=== PATIENT | female | born 1995 | race Caucasian/White ===

== ENCOUNTER 2018-11-05 21:04 | Inpatient (IN) ==
[2018-11-05] MEDS ORDERED: BUPIVACAINE HCL/0.9 % NACL/PF 250 ML EP PRN (22:00)
[2018-11-05] MEDS ORDERED: ONDANSETRON HCL/PF 2 MG/ML VIAL IV PRN (22:00)
[2018-11-05] MEDS ORDERED: NALOXONE HCL 1 MG/1 ML SYRG IV PRN (22:00)
--- NOTE | 2018-11-05 22:30 | ANES ---
Anesthesia Pre Procedure Eval Vitals/Labs: Last Vital Signs Temp 37.1 C 11/05/18 22:28 Pulse 88 11/05/18 22:28 Resp 18 11/05/18 22:28 BP 138/87 11/05/18 22:28 Pulse Ox 97 11/05/18 22:28 HOME MEDICATIONS vitamin,calcium,bymusxxr-cgpo-splep acid tablet 1 tab PO DAILY 03/27/18 [Last Taken 11/04/18] Allergies/Adverse Reactions: Allergies Allergy/AdvReac Type Severity Reaction Status Date / Time No Known Allergies Allergy Verified 11/05/18 21:56 - Planned Procedure Planned Procedure: labor epidural Medication List Reviewed:: Yes Allergies Verified: Yes Medical History (Updated 10/31/18 @ 09:57 by Emili Muñoz MD) Abdominal pain Onset Date: ~01/29/16 Knee pain Onset Date: ~06/2011 bilateral Vomiting Onset Date: ~04/14/09 ONE MONTH HX OF VOMITING. PROBABLE GERD. Surgical History (Updated 03/02/18 @ 13:42 by Kaylen Tomas CMA) History of nasal septoplasty Onset Date: ~02/2015 Dr. Mcdonald S/P tympanotomy with insertion of tube Family History (Updated 03/02/18 @ 13:43 by Kaylen Tomas CMA) Mother Knee pain B12 deficiency Father Hypertension - Cardiovascular Tolerate Activity: Good Heart Sounds: S1 & S2, Regular - Anesthesia Assessment and Plan ASA Class: PS, II Anesthesia Type Plan: Epidural
[2018-11-05] MEDS: BUPIVACAINE HCL/PF 30 ML VIAL EP SCH (22:47)
--- NOTE | 2018-11-05 22:49 | ANES ---
Anesthesia Procedure Note Procedure Note: ANESTHESIA PROCEDURE NOTE Date of Procedure: 11/05/2018. Time of procedure: 2229. Performed by: Baljit Cesar CRNA Survey Superintendent: None. Preprocedure diagnosis: Active labor. Post procedure diagnosis: Same. Procedure: Insertion of labor epidural. Indications: The patient is a 23-year-old female in active labor requesting labor epidural for pain management. Findings: See below. Details of the procedure: The patient was placed in a sitting position. DuraPrep as well as Betadine swabs X3 was applied to the patient's back. Patient was then draped in a sterile fashion. Lidocaine 1% was infiltrated to the skin and subcutaneous tissues at the level of the L3-4 interspace. The epidural space was identified using a 18-gauge Tuohy needle with [id number] technique. Epidural catheter was inserted to a depth of 13 centimeters at skin. Negative test dose was elicited using 3 mL of 1.5% preservative-free lidocaine plus epinephrine 1 200,000. The epidural catheter was then taped and secured in place. A loading dose of 8 mL of 0.25% preservative-free bupivacaine was administered to the epidural catheter after negative aspiration for blood and CSF. EBL: Minimal. Fluids: N/A. Specimen: N/A. Post procedure condition: The patient tolerated the procedure well. No complications were noted. Thank you for this consultation. Baljit Cesar CRNA
--- NOTE | 2018-11-05 22:49 | ANES ---
Post Anesthesia Assessment - Vital Signs Vitals: Last Vital Signs Temp 37.1 C 11/05/18 22:28 Pulse 88 11/05/18 22:28 Resp 18 11/05/18 22:28 BP 138/87 11/05/18 22:28 Pulse Ox 97 11/05/18 22:28 Airway Patency: Normal - Mental Status Level Of Consciousness: Awake - N/V Assessment Nausea/Vomiting Presence: None Dehydration:: No
[2018-11-05] MEDS ORDERED: RINGER'S SOLUTION,LACTATED 1,000 ML IV PRN (23:04)
[2018-11-05] MEDS ORDERED: LIDOCAINE HCL 50 ML VIAL PERI PRN (23:04)
[2018-11-05] MEDS ORDERED: OXYTOCIN/DEXTROSE 5%-WATER 30 UNITS/500 ML BAG IV ONE (23:04)
[2018-11-05] MEDS ORDERED: RINGER'S SOLUTION,LACTATED 1,000 ML IV ONE (23:04)
--- NOTE | 2018-11-06 00:02 | HP ---
Chief Complaint - Chief Complaint Date of Service: 11/05/18 Time of Service: 23:59 Chief Complaint: Labor History of Present Illness: The patient is a 23 year old at 40w 3d who presented in labor. She reports regular ctx. She denies vb or lof. Fetus is active. Medical History (Updated 10/31/18 @ 09:57 by Emili Muñoz MD) Abdominal pain Onset Date: ~01/29/16 Knee pain Onset Date: ~06/2011 bilateral Vomiting Onset Date: ~04/14/09 ONE MONTH HX OF VOMITING. PROBABLE GERD. Surgical History: Surgical History (Updated 03/02/18 @ 13:42 by Kaylen Tomas [facility]) History of nasal septoplasty Onset Date: ~02/2015 Dr. 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 Number current occupational exposures/hazards: No Highest education level completed: high school graduate Service: No Tobacco: Smoking Status: Never smoker Alcohol: alcohol intake: never Substance Use: substance use type: does not use Dietary Habits: caffeine: No Pets: pets and animals: dog(s) Review Of Systems (GEN) - Review of Systems Generalized/Overall Review: Present: No Symptoms Reported Misc: All systems neg except as marked Allergies/Adverse Reactions: Allergies Allergy/AdvReac Type Severity Reaction Status Date / Time No Known Allergies Allergy Verified 11/05/18 21:56 Home Medications: HOME MEDICATIONS vitamin,calcium,amgjefvc-ewze-fwvio acid tablet 1 tab PO DAILY 03/27/18 [Last Taken 11/04/18] Exam - Exam Vital Signs: Vital Signs - Last Taken Temp 36.5 C 11/05/18 22:48 Pulse 92 11/05/18 22:48 Resp 18 11/05/18 22:48 BP 146/88 H 11/05/18 22:48 Pulse Ox 88 L 11/05/18 22:48 Constitutional: Present: Alert, Oriented x3, Cooperative, No distress Respiratory: Present: lungs clear, normal breath sounds Cardiovascular/Chest: Present: regular rate, rhythm, no murmur Abdomen: Present: soft, nontender, nondistended Extremity: Present: non-tender, no calf tenderness Skin Exam: Present: normal color, warm/dry, no cyanosis Appearance: Present: appropriate appearance Eye contact: Present: cooperative Thoughts: Present: normal thought pattern Assessment/Plan - Narrative Narrative: 23 year old @ 40w 3d 1. Labor. AROM for augmentation. Start pitocin if no cervical change in 2 hours 2. GBS negative: prophylaxis not indicated
--- NOTE | 2018-11-06 00:11 | PN ---
Progess Note - Interim Date: 11/06/18 Time: 00:10 Narrative: 11/06/18 00:10 The patient has had a few blood pressures in the mild range which could be related to pain. However, the patient has had a couple of elevated BPs during her and thus will check pre-eclampsia labs. cvx 4/80/-2 AROM for light meconium FHT cat 1 ctx q 4 minutes
[2018-11-06 00:19] LABS: Hematocrit 35.9 % (37.0-47.0); Hemoglobin 11.9 gm/dL (12.5-16.0); Mean Cell Volume 89.3 fl (78-100); Mean Corpuscular Hemoglobin 29.6 pg (27-31); Mean Corpuscular Hgb Conc 33.1 g/dl (32-36); Mean Platelet Volume 9.5 fl (8-12.5); Neutrophil # 4.9 K/mm3 (1.3-6.0); Neutrophil % 64.7 % (42-75.0); Platelet Count 234 K/mm3 (150-450); Red Blood Count 4.02 M/mm3 (4.2-5.4); Red Cell Distribution Width 14.6 % (11.5-14.0); White Blood Count 7.6 K/mm3 (4.0-10.5)
[2018-11-06 00:41] LABS: Albumin * 2.6 gm/dl (3.4-5.0); Anion Gap 15.2 mmol/L (6.8-13.8); BUN/Creatinine Ratio 12.1 (9.0-21.6); Bilirubin, Total 0.3 mg/dL (0.0-1.1); Ca. Corrected For Albumin 9.4 mg/dL (8.4-10.2); Calcium * 8.6 mg/dL (7.9-10.9); Carbon Dioxide 22.6 mmol/L (24-32.6); Potassium 3.8 mmol/L (3.4-4.6); Total Protein 6.1 gm/dL (6.2-8.2)
[2018-11-06 00:55] LABS: Cocaine Ur Negative (NEGATIVE); Urine Barbiturate Negative (NEGATIVE); Urine Benzodiazepines Negative (NEGATIVE); Urine Opiates Negative (NEGATIVE); Urine PCP Negative (NEGATIVE); Urine THC Negative (NEGATIVE)
[2018-11-06 01:01] LABS: Random Urine Total Protein 14.9 mg/dL (0-12)
[2018-11-06] MEDS: BUPIVACAINE HCL/PF 30 ML VIAL EP SCH (01:13)
--- NOTE | 2018-11-06 01:17 | ANES ---
Anesthesia Procedure Note Procedure Note: ANESTHESIA PROCEDURE NOTE Date of Procedure: 11/06/2018. Time of procedure: 0100. Performed by: Baljit Cesar CRNA Ship Boss: None. Preprocedure diagnosis: Active labor. Post procedure diagnosis: Same. Procedure: Removal and re-insertion of labor epidural. Indications: The patient is a 23-year-old female in active labor with incomplete relief despite indwelling epidural catheter. Findings: See below. Details of the procedure: The patient was placed in a sitting position. The epidural catheter was removed intact. DuraPrep as well as Betadine swabs X3 was applied to the patient's back. Patient was then draped in a sterile fashion. Lidocaine 1% was infiltrated to the skin and subcutaneous tissues at the level of the L3-4 interspace. The epidural space was identified using a 18-gauge Tuohy needle with [id number]-sb-nldqjkoutt technique. Epidural catheter was inserted to a depth of 12 centimeters at skin. Negative test dose was elicited using 3 mL of 1.5% preservative-free lidocaine plus epinephrine 1 200,000. The epidural catheter was then taped and secured in place. A loading dose of 8 mL of 0.25% preservative-free bupivacaine was administered to the epidural catheter after negative aspiration for blood and CSF. EBL: Minimal. Fluids: N/A. Specimen: N/A. Post procedure condition: The patient tolerated the procedure well. No complications were noted. Thank you for this consultation. Baljit Cesar CRNA
[2018-11-06] MEDS ORDERED: GENTAMICIN SULFATE 80 MG in DEXTROSE 5 % IN WATER 100 ML IV ONE ×2 (05:56)
[2018-11-06] MEDS ORDERED: BISACODYL 10 MG SUPP.RECT RC PRN (05:57)
[2018-11-06] MEDS ORDERED: GLYCERIN/WITCH HAZEL LEAF 40 APPL BOX TP PRN (05:57)
[2018-11-06] MEDS ORDERED: diphenhydrAMINE HCL 25 MG CAPSULE PO PRN (05:57)
[2018-11-06] MEDS ORDERED: SENNOSIDES 8.6 MG TABLET PO PRN (05:57)
[2018-11-06] MEDS ORDERED: BENZOCAINE/MENTHOL 81 SPRAY CAN TP PRN (05:57)
[2018-11-06] MEDS ORDERED: OXYTOCIN/DEXTROSE 5%-WATER 30 UNITS/500 ML BAG IV ONE (05:57)
[2018-11-06] MEDS ORDERED: oxyCODONE HCL/ACETAMINOPHEN 1 TAB TABLET PO PRN (05:57)
[2018-11-06] MEDS ORDERED: HYDROCORTISONE 30 APPL TUBE TP PRN (05:57)
--- NOTE | 2018-11-06 06:08 | OR ---
Operative Report - Dictated Report Narrative: Date of delivery: 11/06/2018 Time of delivery: 536 Gender: female weight: 3221 grams APGARS: 8/9 Procedure: Description of the procedure: Prior to delivery the patient felt warm and her temperature was checked. She had a fever of 38.1 Celcius. For that reason the patient will have ampicillin/gentamicin/clindamycin for 24 hours after delivery for endometritis prophylaxis. Placental cultures obtained and the placenta was sent for pathological analysis. Of note, amniotic fluid was meconium stained and the nursing staff noted minimal fluid consistent with the patient's gestational age. The patient is a 23 year old at 40w 4d who presented in labor. She underwent AROM and progressed to complete dilation. She delivered a viable female in the ALEX presentation. The cord was cut and clamped. The was placed on the maternal abdomen. The placenta was delivered by expression and appeared intact. A right labial laceration was repaired with 4-0 vicryl for hemostasis. EBL: 100 mL Complications: none Specimen: placenta History for Definition: * The number of deliveries resulting in a live the patient experienced prior to current hospitalization * The previous delivery of live twins or any live multiple gestation is considered one live event. *If primagravida or nulliparous is documented select zero for the number of previous live births. Live Events: 0
[2018-11-06] MEDS: oxyCODONE HCL/ACETAMINOPHEN 1 TAB TABLET PO PRN (06:38)
[2018-11-06] MEDS: AMPICILLIN SODIUM 2,000 MG in NORMAL SALINE 100 ML IV SCH ×3 (06:38→18:05)
[2018-11-06] MEDS: IBUPROFEN 800 MG TABLET PO PRN ×2 (06:38→18:10)
[2018-11-06] MEDS: CLINDAMYCIN PHOSPHATE 900 MG in DEXTROSE 5 % IN WATER 100 ML IV SCH ×6 (07:35→22:17)
[2018-11-06] MEDS: DOCUSATE SODIUM 100 MG CAPSULE PO SCH ×2 (10:16→20:48)
[2018-11-06] MEDS: PRENATAL VITS96/IRON FUM/FOLIC 1 TAB TABLET PO SCH (10:16)
[2018-11-07] MEDS: AMPICILLIN SODIUM 2,000 MG in NORMAL SALINE 100 ML IV SCH ×2 (01:24→06:43)
[2018-11-07] MEDS: CLINDAMYCIN PHOSPHATE 900 MG in DEXTROSE 5 % IN WATER 100 ML IV SCH ×2 (05:35)
[2018-11-07] MEDS: oxyCODONE HCL/ACETAMINOPHEN 1 TAB TABLET PO PRN (08:31)
[2018-11-07] MEDS: IBUPROFEN 800 MG TABLET PO PRN (08:31)
[2018-11-07] MEDS: PRENATAL VITS96/IRON FUM/FOLIC 1 TAB TABLET PO SCH (08:31)
[2018-11-07] MEDS: DOCUSATE SODIUM 100 MG CAPSULE PO SCH (08:31)
--- NOTE | 2018-11-07 09:03 | PN ---
Subjective - Date and Time Seen Date: 11/07/18 Time: 09:02 Subjective Narrative: Patient without complaints Objective Objective Narrative: See vital signs - Review of Systems Generalized/Overall Review: Reports: No Symptoms Reported Misc: All systems neg except as marked - Vitals Vitals: Last Vital Signs Temp 36.4 C 11/07/18 01:42 Pulse 90 11/07/18 01:42 Resp 16 11/07/18 01:42 BP 111/59 11/07/18 01:42 Pulse Ox 96 11/07/18 01:42 - Exam Constitutional: Present: Alert, Oriented x3, Cooperative, No distress Abdomen: Present: soft, nontender, nondistended - fundus is firm Extremity: Present: non-tender, no calf tenderness Skin Exam: Present: normal color, warm/dry, no cyanosis Appearance: Present: appropriate appearance Eye contact: Present: cooperative Thoughts: Present: normal thought pattern Cauti Physician Documentation - Urinary Catheter Management Urethral (Hernandez) Urethral Indwelling: No Date of Insertion: 11/05/18 Time of Insertion: 23:15 Date of Removal: 11/06/18 Time of Removal: 05:15 Assessment/Plan Plan Narrative: PPD 1 s/p Doing well Discharge today as the patient's baby is in [place] Follow-up in 4 weeks
[2018-11-07 09:05] VITALS: BP 125/78
== END 2018-11-07 08:55 | disposition home or self-care (01) | DRG 805 ==
LOC: OBCLINIC 21:04 → OB 21:39
PROVIDERS: ADMIT Obstetrics & Gynecology; ATTEND Obstetrics & Gynecology
CPT/HCPCS: 36415; 59025; 80053; 80307; 82570; 84155; 84156; 85025; 86850; 87070; 87075; 87077; 87186; 88307